=== PATIENT | male | born 1985 | race Caucasian/White ===

== ENCOUNTER 2023-02-13 12:57 | Emergency (ER) | payer OTHER ==
[~2023-02-13] VITALS: Ht 180.3 cm; Wt 84.0 kg
[2023-02-13] MEDS ORDERED: PREDNISONE20 MG PO (14:06)
[2023-02-13 14:16] VITALS: BP 133/91
--- OUTSIDE RECORDS SUMMARY | 2023-02-13 14:40 | XMS ---
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 Nadia has no Care Guidelines for this patient. [place] VISIT COUNT (12 MO.) 1 SHABBIR Chavez ([facility]) TOTAL 2 NOTE: Visits indicate total known visits. ED/[facility] VISIT TRACKING (12 MO.) 02/13/2023 12:58 SHABBIR Arreguin [place] TYPE: Emergency COMPLAINT: - FACIAL SWELLING 02/12/2023 15:21 Daniel NAVARRETE ([facility]) TYPE: Emergency DIAGNOSES: - Rash and other nonspecific skin eruption - Viral infection, unspecified - Facial Swelling - facial swelling, body aches, weakness, and chills INPATIENT VISIT TRACKING (12 MO.) No inpatient visits to display in this time frame [email or web address]
== END 2023-02-13 14:17 | disposition home or self-care (01) ==
LOC: ED 12:57
DX: T65.6X1A Toxic effect of paints and dyes, not elsewhere classified, accidental (unintentional), initial encounter (principal); R22.0 Localized swelling, mass and lump, head; L53.9 Erythematous condition, unspecified
CPT/HCPCS: 99282; J7512